=== PATIENT | female | born 1935 | race Caucasian/White ===

== ENCOUNTER 2021-04-14 17:23 | Emergency (ER) | payer MEDICARE, OTHER ==
[2021-04-14 17:40] VITALS: PULSE 84
[2021-04-14] MEDS: Ibuprofen 600 MG Tab PO ONE (17:55)
== END 2021-04-14 18:23 | disposition home or self-care (01) ==
LOC: KA.ED 17:23
DX: S92.312A Displaced fracture of first metatarsal bone, left foot, initial encounter for closed fracture (principal); Z88.0 Allergy status to penicillin; Z88.2 Allergy status to sulfonamides; W01.10XA Fall on same level from slipping, tripping and stumbling with subsequent striking against unspecified object, initial encounter; Y92.039 Unspecified place in apartment as the place of occurrence of the external cause
CPT/HCPCS: 73610-LT; 73630-LT; 99284; 99284-25; A9270-GY

== ENCOUNTER 2021-04-23 08:22 | Emergency (ER) | payer MEDICARE, OTHER ==
[2021-04-23] MEDS ORDERED: Acetaminophen 500 MG Tab PO ONE (11:58)
[2021-04-23 12:33] VITALS: BP 175/75; PULSE 70
== END 2021-04-23 15:05 ==
LOC: KA.ED 08:22
DX: M25.551 Pain in right hip (principal); S92.312D Displaced fracture of first metatarsal bone, left foot, subsequent encounter for fracture with routine healing; J44.9 Chronic obstructive pulmonary disease, unspecified; Z88.0 Allergy status to penicillin; Z88.2 Allergy status to sulfonamides; Z98.890 Other specified postprocedural states; Z79.899 Other long term (current) drug therapy; Z20.822 Contact with and (suspected) exposure to COVID-19; W18.30XD Fall on same level, unspecified, subsequent encounter
CPT/HCPCS: 99283; 99285; A9270-GY; U0002

== ENCOUNTER 2021-10-12 09:35 | Emergency (ER) | payer MEDICARE, OTHER ==
[2021-10-12 09:53] VITALS: PULSE 98
[2021-10-12 10:04] VITALS: BP 148/79
== END 2021-10-12 11:30 | disposition home or self-care (01) ==
LOC: KA.ED 09:35
DX: S22.31XA Fracture of one rib, right side, initial encounter for closed fracture (principal); J44.9 Chronic obstructive pulmonary disease, unspecified; Z88.0 Allergy status to penicillin; Z88.2 Allergy status to sulfonamides; W18.09XA Striking against other object with subsequent fall, initial encounter
CPT/HCPCS: 71101-RT; 99283

== ENCOUNTER 2022-06-27 14:59 | Emergency (ER) | payer MEDICARE, OTHER ==
[2022-06-27 15:16] VITALS: BP 184/88; PULSE 82
[2022-06-27] MEDS ORDERED: Morphine 2 MG/ML SYRINGE IVPUSH ONE (15:20)
[2022-06-27] MEDS ORDERED: Ondansetron 4 MG/2 ML SDV IVPUSH PRN (15:38)
[2022-06-27] MEDS: Sodium Chloride 0.9% 10 ML Syringe FLUSH PRN ×2 (15:57→16:52)
[2022-06-27 15:58] LABS: ANION GAP 13.7 mmol/L (5-15)
[2022-06-27] MEDS ORDERED: Ketorolac 30 MG/ML SDV IVPUSH ONE (16:33)
== END 2022-06-27 17:35 | disposition home or self-care (01) ==
LOC: KA.ED 14:59
DX: M54.50 Low back pain, unspecified (principal); J44.9 Chronic obstructive pulmonary disease, unspecified; Z88.0 Allergy status to penicillin; Z88.2 Allergy status to sulfonamides; Z79.899 Other long term (current) drug therapy
CPT/HCPCS: 36415; 72100; 80048; 81001; 85025; 96374; 96375; 99283; J1885; J2270; J2405; 99284; J3490

== ENCOUNTER 2023-08-23 16:56 | Emergency (ER) | payer MEDICARE ==
[2023-08-23] MEDS ORDERED: Sodium Chloride 0.9% 1,000 ML IV SCH (17:30)
[2023-08-23] MEDS: HYDROmorphone 1 MG/ML Syringe IVPUSH ONE (17:35)
[2023-08-23] MEDS: Ondansetron 4 MG/2 ML SDV IVPUSH ONE (17:37)
[2023-08-23 18:11] LABS: BASOPHILS ABSOLUTE AUTO 0.02 10^3/uL (0.00-0.10); BASOPHILS PERCENT AUTO 0.3 % (0.0-1.0); EOSINOPHILS ABSOLUTE AUTO 0.15 10^3/uL (0.10-0.30); EOSINOPHILS PERCENT AUTO 1.9 % (1.0-3.0); HEMOGLOBIN 12.6 g/dL (12.0-16.0); IMMATURE GRAN ABSOLUTE AUTO 0.03 10^3/uL (0.00-0.50); IMMATURE GRAN PERCENT AUTO 0.4 % (0.0-5.0); LYMPHOCYTES ABSOLUTE AUTO 0.67 10^3/uL (1.00-4.00); LYMPHOCYTES PERCENT AUTO 8.6 % (20.0-40.0); MEAN CORPUSCULAR HEMOGLOBIN 32.7 pg (27.0-31.0); MEAN CORPUSCULAR HGB CONC 34.1 g/dL (32.0-36.0); MEAN CORPUSCULAR VOLUME 96.1 fL (82.0-92.0); MEAN PLATELET VOLUME 9.9 fL (7.4-10.4); MONOCYTES ABSOLUTE AUTO 0.43 10^3/uL (0.10-0.80); MONOCYTES PERCENT AUTO 5.5 % (2.0-8.0); NEUTROPHILS ABSOLUTE AUTO 6.53 10^3/uL (2.50-7.00); NEUTROPHILS PERCENT AUTO 83.3 % (50.0-70.0); PLATELET COUNT,PLT 217 10^3/uL (150-400); RED BLOOD CELL COUNT 3.85 10^6/uL (3.80-5.50); RED CELL DISTRIBUTION WIDTH 12.4 % (11.5-14.5); WHITE BLOOD CELL COUNT,WBC 7.83 10^3/uL (5.00-10.00)
[2023-08-23 18:24] LABS: ANION GAP 14.2 mmol/L (5-15); CALCIUM 8.4 mg/dL (8.7-10.3); CARBON DIOXIDE,CO2 27.8 mmol/L (21.0-32.0); CREATININE 0.84 mg/dL (0.51-1.17); EST CRCL DRUG DOSING (CG) 35.91 mL/min
[2023-08-23 20:59] VITALS: BP 156/75; PULSE 98
== END 2023-08-23 21:43 ==
LOC: KA.ED 16:56
DX: S72.092A Other fracture of head and neck of left femur, initial encounter for closed fracture (principal); Z88.0 Allergy status to penicillin; Z88.2 Allergy status to sulfonamides; J44.9 Chronic obstructive pulmonary disease, unspecified; W19.XXXA Unspecified fall, initial encounter
CPT/HCPCS: 36415; 73700-LT; 80048; 85025; 93005; 93010; 96374; 96375; 99284; 99285-25; J1170; J2405